=== PATIENT | female | born 1985 | race African-American/Black ===

== ENCOUNTER 2017-02-20 16:07 | Emergency (ER) | payer OTHER ==
[2017-02-20] MEDS ORDERED: Ketorolac Tromethamine 30 MG/ML VIAL ONE (16:31)
[2017-02-20] MEDS ORDERED: diphenhydrAMINE HCl 50 MG/ML 1 ML VIAL ONE (16:31)
[2017-02-20] MEDS ORDERED: Prochlorperazine 10 MG/2 ML VIAL ONE (16:31)
--- NOTE | 2017-02-20 21:20 | CT ---
CT OF THE BRAIN WITHOUT CONTRAST 02/20/[address] was performed for evaluation of headache two days following trauma. The ventricles are normal in size with no shift. No intracranial bleeding was seen. On scan 13, a sm all white streak seen on the inner table of the left temporoparietal area is thought to be due to ar tifact rather than a tiny amount of bleeding. The slices immediately above and below it appear maxine l. There is good anderson-white distinction. No masses were seen. There is no skull fracture. The spheno id sinus and mastoid air cells are clear. IMPRESSION: No acute intracranial finding. POS: HOME
== END 2017-02-20 17:24 | disposition home or self-care (01) ==
LOC: BURERS 16:07
DX: G43.909 Migraine, unspecified, not intractable, without status migrainosus (principal); I10 Essential (primary) hypertension; F31.9 Bipolar disorder, unspecified; F41.9 Anxiety disorder, unspecified; Z79.899 Other long term (current) drug therapy
CPT/HCPCS: 70450; 96361; 96374; 96375; J0780; J1200; J1885

== ENCOUNTER 2022-06-08 20:27 | Emergency (ER) | payer MEDICAID, OTHER ==
[2022-06-08] MEDS ORDERED: Sulfameth/Trimethoprim DS 800-160mg TAB ONE (21:00)
== END 2022-06-08 21:05 | disposition home or self-care (01) ==
LOC: BURERS 20:27
DX: K11.5 Sialolithiasis (principal); I88.9 Nonspecific lymphadenitis, unspecified; I10 Essential (primary) hypertension
CPT/HCPCS: 99283

== ENCOUNTER 2022-09-17 14:43 | Emergency (ER) | payer MEDICAID, OTHER ==
[2022-09-17] MEDS ORDERED: predniSONE 20 MG TAB ONE (16:04)
[2022-09-17] MEDS ORDERED: Ibuprofen 200 MG TAB ONE (16:04)
== END 2022-09-17 16:07 | disposition home or self-care (01) ==
LOC: BURERS 14:43
DX: S29.012A Strain of muscle and tendon of back wall of thorax, initial encounter (principal); V89.2XXA Person injured in unspecified motor-vehicle accident, traffic, initial encounter
CPT/HCPCS: 99283; J7512